=== PATIENT | male | born 1990 | race Hispanic/Latino ===

== ENCOUNTER 2017-03-22 06:18 | Emergency (ER) | payer OTHER ==
[2017-03-22 06:35] VITALS: BMI 26.6
[2017-03-22 06:48] VITALS: TEMP 98; O2SAT 100
[2017-03-22] MEDS ORDERED: Sodium Chloride 0.9% 500 ML IV STA (07:31)
--- NOTE | 2017-03-22 07:32 | ED PDOC ---
HPI: Chest Pain Time Seen by Provider: 03/22/17 07:15 Chief Complaint (Nursing): Chest Pain Chief Complaint (Provider): Chest pain History Per: Patient History/Exam Limitations: no limitations Onset/Duration Of Symptoms: Days (yesterday) Current Symptoms Are (Timing): Still Present Additional History Per: Patient Additional Complaint(s): Left chest pain. No dyspnea. Is off and on. No numbness, headaches. Had tingling in both hands and feet. No leg pain, long distance travel, hormone tx. No abd pain. Has light-headedness off and on. No nausea, vomit. Had cough during the night. Past Medical History Reviewed: Nursing Documentation, Vital Signs Vital Signs: Last Vital Signs Temp 98.0 F 03/22/17 06:41 Pulse 88 03/22/17 06:41 Resp 18 03/22/17 06:41 BP 144/86 03/22/17 06:41 Pulse Ox 100 03/22/17 09:25 - Medical History PMH: No Chronic Diseases - Surgical History Surgical History: No Surg Hx - Family History Family History: States: Unknown Family Hx - Living Arrangements Living Arrangements: With Family - Social History Current smoker - smoking cessation education provided: Yes Alcohol: None Drugs: Denies - Allergies Allergies/Adverse Reactions: Allergies Allergy/AdvReac Type Severity Reaction Status Date / Time No Known Allergies Allergy Verified 03/22/17 06:34 NICOLA Risk Score for UA/NSTEMI - NICOLA Risk Score Age > 64: NO 3 or more CAD Risk Factors: NO Known CAD (Stenosis greater than 50%): NO Aspirin use in past 7 days: NO Severe Angina: NO EKG ST changes greater than 0.5mm: NO Positive Cardiac Marker: NO NICOLA Score: 0 Risk %: 5% Wells Criteria for PE - Wells Criteria for Pulmonary Embolism Clinical Signs and Symptoms of DVT: No P.E is #1 Diagnosis, or Equally Likely: No Heart Rate >100: No Immobilization at least 3 days;Surgery previous 4 weeks: No Previous, objectively diagnosed PE or DVT: No Hemoptysis: No Malignancy w/treatment within 6 months, or palliative: No Total Score: 0 Review of Systems ROS Statement: Except As Marked, All Systems Reviewed And Found Negative Cardiovascular: Positive for: Chest Pain, Light Headedness Respiratory: Positive for: Cough Physical Exam - Reviewed Nursing Documentation Reviewed: Yes Vital Signs Reviewed: Yes - Physical Exam Appears: Positive for: Non-toxic, No Acute Distress Head Exam: Positive for: ATRAUMATIC, NORMAL INSPECTION, NORMOCEPHALIC Skin: Positive for: Normal Color, Warm, DRY Eye Exam: Positive for: EOMI, Normal appearance, PERRL ENT: Positive for: Normal ENT Inspection. Negative for: Pharyngeal Erythema, Tonsillar Exudate Neck: Positive for: Normal, Painless ROM, Supple Cardiovascular/Chest: Positive for: Regular Rate, Rhythm, Chest Non Tender. Negative for: Edema Respiratory: Positive for: CNT, Normal Breath Sounds Gastrointestinal/Abdominal: Positive for: Normal Exam, Bowel Sounds, Soft. Negative for: Tenderness Back: Positive for: Normal Inspection. Negative for: L CVA Tenderness, R CVA Tenderness Extremity: Positive for: Normal ROM. Negative for: Tenderness, Pedal Edema Neurologic/Psych: Positive for: Alert, egg tester II-XII, Oriented. Negative for: Motor/Sensory Deficits - Laboratory Results Result Diagrams: 03/22/17 07:33 03/22/17 07:33 Interpretation Of Abn Labs: 14.2 wbc; dimer elevated - ECG ECG: Positive for: Interpreted By Me, Viewed By Me ECG Rhythm: Positive for: Normal QRS, Normal ST Segment, Sinus Rhythm O2 Sat by Pulse Oximetry: 100 Pulse Ox Interpretation: Normal - Radiology X-Ray: Interpreted by Me, Viewed By Me X-Ray Interpretation: No Acute Disease - Progress ED Course And Treament: 925: Stable. Dimer elevation. Will get ct. 1108: Stable. AAOx3. Pain free. Tolerated PO. Refusing further evaluation, catscan, treatment. Has capacity to make decisions. Aware of possible or decreased functioning from chest pain, blood clots, or other issues causing his pain. Pt. does not want any other doctor or family notified. Would like to leave. Ambulated with no issues. Disposition - Clinical Impression Clinical Impression: Chest pain - Patient ED Disposition Is Patient to be Admitted: No Counseled Patient/Family Regarding: Diagnosis - Disposition Referrals: [facility] [Outside] - 03/24/17 Disposition: Against Medical Advice Disposition Time: 11:13 Condition: STABLE Additional Instructions: You are going against medical advice. You are refusing a cat scan of your chest. You are aware of possible or decreased functioning from blood clots in your lungs, chest pain, or hearth related issues. Return soon as possible for further evaluation and treatment. Instructions: Chest Pain (ED) Forms: [employer] (Amharic)
[2017-03-22 07:45] LABS: BASO # 0.1 K/uL (0.0-0.2); BASO % 0.5 % (0.0-2.0); EOS # 0.2 K/uL (0.0-0.7); EOS % 1.3 % (0.0-4.0); HEMATOCRIT 43.1 % (35.0-51.0); LYMPH # 1.5 K/uL (1.0-4.3); LYMPH % 10.3 % (20.0-40.0); MEAN CELL VOLUME 85.2 fl (80.0-94.0); MEAN CORPUSCULAR HEMOGLOBIN 28.8 pg (27.0-31.0); MEAN CORPUSCULAR HGB CONC 33.8 g/dL (33.0-37.0); MEAN PLATELET VOLUME 9.1 fl (7.2-11.7); MONO # 0.8 K/uL (0.0-0.8); MONO % 5.5 % (0.0-10.0); NEUT # 11.7 K/uL (1.8-7.0); NEUT % 82.4 % (50.0-75.0); RED CELL DISTRIBUTION WIDTH 12.1 % (11.5-14.5); WHITE BLOOD COUNT 14.2 K/uL (4.8-10.8)
[2017-03-22 07:58] LABS: ALB/GLOB RATIO 1.7 (1.0-2.1); ALKALINE PHOSPHATASE 79 U/L (38-126); ALT/SGPT 78 U/L (21-72); AST/SGOT 33 U/L (17-59); BILIRUBIN,TOTAL 0.7 mg/dl (0.2-1.3); BLOOD UREA NITROGEN 13 mg/dl (9-20); CARBON DIOXIDE 31 mmol/L (22-30); CHLORIDE 97 mmol/L (98-107); GFR AFRICAN-AMERICAN > 60; GLUCOSE,RANDOM 131 mg/dL (75-110); LIPASE 119 U/L (23-300); POTASSIUM 4.3 MMOL/L (3.6-5.0); SODIUM 142 mmol/l (132-148); TOTAL PROTEIN 7.9 G/DL (6.3-8.2)
[2017-03-22 08:04] LABS: PARTIAL THROMBOPLASTIN TIME 28.9 Seconds (25.6-37.1)
[2017-03-22] MEDS ORDERED: Iodixanol 320 MG/ML 100 ML BOTTLE IV ONE ×2 (10:09→10:33)
[2017-03-22] MEDS ORDERED: Sodium Chloride 0.9% 100 ML ONE (10:10)
--- NOTE | 2017-03-22 10:29 | RAD ---
HISTORY: chest pain COMPARISON: No prior. FINDINGS: LUNGS: No active pulmonary disease. PLEURA: No significant pleural effusion identified, no pneumothorax apparent. CARDIOVASCULAR: Normal. OSSEOUS STRUCTURES: No significant abnormalities. VISUALIZED UPPER ABDOMEN: Normal. OTHER FINDINGS: None. IMPRESSION: No active disease.
[2017-03-22 11:28] VITALS: BP 134/80; PULSE 82; RESP 16
--- NOTE | 2017-03-23 21:19 | CARD ---
APPROVED REPORT EKG Measurement Heart [id number] <Conclusion> Normal sinus rhythm with sinus arrhythmia Normal ECG
== END 2017-03-22 11:27 | disposition left against medical advice (07) ==
LOC: H.ER 06:18
DX: R07.89 Other chest pain (principal)
CPT/HCPCS: 71010; 80053; 80320; 83690; 84484; 85025; 85378; 85610; 85730; 93005; 96361; 96374; 96375; 99284; J1885; J2405; J7040; Q9967